=== PATIENT | female | born 1995 | race Caucasian/White ===

== ENCOUNTER 2018-06-23 23:38 | Emergency (ER) | payer OTHER ==
[2018-06-23 23:39] VITALS: BMI 22.6
[2018-06-23 23:49] VITALS: RESP 18; TEMP 98.2; O2SAT 100
[2018-06-23] MEDS ORDERED: Albuterol-Ipratrop 3 mg / 0.5 (3 ml) UD IH STA (23:50)
--- NOTE | 2018-06-24 00:13 | ED PDOC ---
Arrival/HPI <Otoniel Regalado - Last Filed: 06/24/18 01:03> - General Historian: Patient - History of Present Illness Narrative History of Present Illness (Text): 06/24/18 00:00 Patient is a 23F w/ a PMH of asthma + active smoker who's presenting today w/ 3 days of ongoing cough w/ productive sputum. Patient denies any sick contacts however stated that symptoms have progressively getting worse and are associated w/ episodes of shortness of breath and wheezing. Denies any fevers/chills. Reports she wakes up 1-2 x/ mo w/ asthma symptoms denies PMD. Has not albuterol inhaler in over 5mo. <Jules Boateng - Last Filed: 06/24/18 02:09> - General Chief Complaint: Cough, Cold, Congestion Time Seen by Provider: 06/23/18 23:58 Past Medical History - Provider Review Nursing Documentation Reviewed: Yes - Infectious Disease Hx of Infectious Diseases: None, C.diff - Past Medical History Past Medical History: No Previous - Cardiac Hx Cardiac Disorders: No - Pulmonary Hx Asthma: Yes - Psychiatric Hx Depression: No Hx Emotional Abuse: No Hx Physical Abuse: No Hx Substance Use: No - Past Surgical History Past Surgical History: No Previous - Anesthesia Hx Anesthesia: No - Suicidal Assessment Feels Threatened In Home Enviroment: No <Jules Boateng - Last Filed: 06/24/18 02:09> Family/Social History - Physician Review Nursing Documentation Reviewed: Yes Family/Social History: Unknown Family HX Smoking Status: Heavy Smoker > 10 Cigarettes Daily Hx Alcohol Use: No Hx Substance Use: No Hx Substance Use Treatment: No <Jules Boateng - Last Filed: 06/24/18 02:09> Allergies/Home Meds <Otoniel Regalado - Last Filed: 06/24/18 01:03> <Jules Boateng - Last Filed: 06/24/18 02:09> Allergies/Adverse Reactions: Allergies peanut Allergy (Verified 06/23/18 23:49) RASH Review of Systems - Review of Systems Constitutional: Normal Eyes: Normal ENT: Normal Respiratory: SOB, Cough, Sputum, Wheezing Cardiovascular: Normal Gastrointestinal: Normal Genitourinary Female: Normal Musculoskeletal: Normal Skin: Normal Neurological: Normal Endocrine: Normal Hemo/Lymphatic: Normal Psychiatric: Normal <Jules Boateng - Last Filed: 06/24/18 02:09> Physical Exam Vital Signs Temp Pulse Resp BP Pulse Ox 06/23/18 23:48 98.2 F 82 18 127/86 100 <Otoniel Regalado - Last Filed: 06/24/18 01:03> Vital Signs Temp Pulse Resp BP Pulse Ox 06/23/18 23:48 98.2 F 82 18 127/86 100 Temperature: Afebrile Blood Pressure: Normal Pulse: Regular Respiratory Rate: Normal Appearance: Positive for: Well-Appearing, Non-Toxic, Comfortable Pain Distress: None Mental Status: Positive for: Alert and Oriented X 3 - Systems Exam Head: Present: Atraumatic, Normocephalic Pupils: Present: PERRL Extroacular Muscles: Present: EOMI Conjunctiva: Present: Normal Mouth: Present: Moist Mucous Membranes Neck: Present: Normal Range of Motion Respiratory/Chest: Present: Clear to Auscultation, Good Air Exchange. No: Respiratory Distress, Accessory Muscle Use Cardiovascular: Present: Regular Rate and Rhythm, Normal S1, S2. No: Murmurs Abdomen: No: Tenderness, Distention, Peritoneal Signs Back: Present: Normal Inspection Upper Extremity: Present: Normal Inspection. No: Cyanosis, Edema Lower Extremity: Present: Normal Inspection. No: Edema Neurological: Present: GCS=15, CN II-XII Intact, Speech Normal Skin: Present: Warm, Dry, Normal Color. No: Rashes Psychiatric: Present: Alert, Oriented x 3, Normal Insight, Normal Concentration <Jules Boateng - Last Filed: 06/24/18 02:09> Medical Decision Making - RAD Interpretation Radiology Orders: 06/23/18 23:58 CXR [CHEST PORTABLE] [RAD] Stat - Medication Orders Current Medication Orders: Discontinued Medications Albuterol Sulfate (Albuterol 0.083% Inhal [place] (2.5 Mg/3 Ml) Ud) 2.5 mg INH STAT STA Stop: 06/24/18 00:23 Albuterol/Ipratropium (Duoneb 3 Mg/0.5 Mg (3 Ml) Ud) 3 ml IH STAT STA Stop: 06/23/18 23:51 Last Admin: 06/24/18 00:21 Dose: 3 ml Prednisone (Prednisone Tab) 60 mg PO STAT ONE Stop: 06/23/18 23:51 Last Admin: 06/24/18 00:20 Dose: 60 mg <[email or web address] - Last Filed: 06/24/18 01:03> ED Course and Treatment: 06/24/18 00:14 23F w/ cough/congestion +green sputum; wheezing/ sob Asthma exacerbation Bronchitis r/o pna r/o strep r/o flu Plan: Rapid strep Rapid Flu CXR Duoneb Steroid Progress Note: Flu / strep negative cxr wnl no infiltrate/ pulmonary disease apreciated most likely bronchitis Patient given follow up instructions as well as rx Patient counseled on need to quit smoking - RAD Interpretation Radiology Orders: 06/23/18 23:58 CXR [CHEST PORTABLE] [RAD] Stat - Medication Orders Current Medication Orders: Discontinued Medications Albuterol/Ipratropium (Duoneb 3 Mg/0.5 Mg (3 Ml) Ud) 3 ml IH STAT STA Stop: 06/23/18 23:51 Prednisone (Prednisone Tab) 60 mg PO STAT ONE Stop: 06/23/18 23:51 <Jules Boateng - Last Filed: 06/24/18 02:09> Disposition/Present on Arrival - Present on Arrival Any Indicators Present on Arrival: No - Disposition Have Diagnosis and Disposition been Completed?: Yes Disposition Time: 00:55 Patient Plan: Discharge <Otoniel Regalado - Last Filed: 06/24/18 01:03> - Present on Arrival Any Indicators Present on Arrival: No History of DVT/PE: No History of Uncontrolled Diabetes: No Urinary Catheter: No History of Decub. Ulcer: No History Surgical Site Infection Following: None - Disposition Have Diagnosis and Disposition been Completed?: Yes Patient Plan: Discharge <Jules Boateng - Last Filed: 06/24/18 02:09> - Disposition Diagnosis: Bronchitis Discharge Instructions (ExitCare): Acute Bronchitis, Adult (DC) Print Language: SCOTTISH Additional Instructions: Please take medications as prescribed. Prescriptions: Albuterol Sulfate [Ventolin Hfa] 1 puff IH Q6H #200 ml guaiFENesin [Robitussin] 200 mg PO Q6H #50 udc Methylprednisolone [Medrol Dose Pack (21 tabs)] 4 mg PO DAILY #21 mg Naproxen 500 mg PO Q6H #12 tab Referrals: Maria Luisa Colón MD [Medical Doctor] - [place] [facility] [facility] [place] [facility] [place] - Follow up with primary Forms: [employer] (Thai), WORK NOTE
[2018-06-24] MEDS ORDERED: Albuterol 0.083% Inhal Sol (2.5 mg/3 mL) UD INH STA (00:22)
[2018-06-24 01:10] VITALS: BP 123/70; PULSE 78
--- NOTE | 2018-06-24 09:04 | RAD ---
Date of service: 06/24/2018 HISTORY: Cough/Sputum COMPARISON: 11/02/2013 FINDINGS: LUNGS: No active pulmonary disease. PLEURA: No significant pleural effusion identified, no pneumothorax apparent. CARDIOVASCULAR: No aortic atherosclerotic calcification present. Normal cardiac size. No pulmonary vascular congestion. OSSEOUS STRUCTURES: No significant abnormalities. VISUALIZED UPPER ABDOMEN: Normal. OTHER FINDINGS: None. IMPRESSION: No active disease.
== END 2018-06-24 01:09 | disposition home or self-care (01) ==
LOC: ED 23:38
DX: J40 Bronchitis, not specified as acute or chronic (principal); F17.210 Nicotine dependence, cigarettes, uncomplicated